=== PATIENT | female | born 1995 | race Caucasian/White ===

== ENCOUNTER 2024-10-09 14:11 | Emergency (ER) | payer MEDICAID ==
[~2024-10-09] VITALS: Ht 167.6 cm; Wt 98.6 kg
[2024-10-09 14:19] VITALS: BP 174/96; PULSE 125; RESP 18; TEMP 97.6; O2SAT 98
== END 2024-10-09 15:29 | disposition left against medical advice (07) ==
LOC: ER 14:11
DX: Z00.8 Encounter for other general examination (principal); Z53.21 Procedure and treatment not carried out due to patient leaving prior to being seen by health care provider

== ENCOUNTER 2024-10-21 12:07 | Emergency (ER) | payer MEDICAID ==
[~2024-10-21] VITALS: Ht 167.6 cm; Wt 114.9 kg
[2024-10-21 12:12] VITALS: BP 136/71; PULSE 100; RESP 16; O2SAT 98
--- NOTE | 2024-10-21 13:30 | Physician Documentation ---
History of Present Illness ~ Chief Complaint: See Chief Complaint Stated Complaint: BRISENO ON FEET Time Seen by MD: 13:07 HPI 28-year-old female presents to the ED with a complaint of bilateral lower extremity burning after she done cutting trees with shoes on. States she de veloped burning for approximately 1 hour andequesting treatment. States he may have gotten her socks from her recovery treatment center however her shoes are not new so Day of Onset: October 21, 2024 Medication Reconciliation Allergies: Coded Allergies: No Known Allergies (Unverified , 10/21/24) Review of Systems All Other Systems at this time: Reviewed and Negative ROS As stated above in the HPI, otherwise all systems are reviewed and negative. Physical Exam Vital Signs: Heart Rate: 100, Respiratory Rate: 16, BP: 136/71, Pulse Oximetry: 98, Weight: 114.900 Oxygen Flow Rate: 0 Physical Exam General: Alert, no apparent distress. Respiratory: Lungs clear, no respiratory distress. Extremities: Normal range of motion, no deformity. mild foot swelling Neurologic: Oriented x4. Psychiatric: Normal mood and affect. Skin: Normal color, warm and dry. No edema, no ecchymosis. Progress Results/Orders Results/Orders Completed Orders - VINCENT BILLINGSLEY NP Silver Sulfadiazine Cream (Silvadene Cre (10/21/24 13:30) Diphenhydramine Capsule (Benadryl Capsul (10/21/24 13:35) Medications Received in ER Medications (Trade) Dose Ordered Sig/Pema Route PRN Reason Start Time Stop Time Status Last Admin Dose Admin (Silvadene cream) 1 applic ONCE ONCE TP 10/21/24 13:30 10/21/24 13:31 DC 10/21/24 13:36 1 APPLIC (Benadryl capsule) 50 mg ONCE ONCE PO 10/21/24 13:35 10/21/24 13:36 DC 10/21/24 13:36 50 MG Vital Signs 10/21/24 12:12 Pulse 100 Resp 16 B/P (MAP) 136/71 Pulse Ox 98 O2 Flow Rate 0 Medical Decision Making Findings Currently suspecting allergic to reaction to whatever detergent or bleed was used on the socks [facility] for the burning sensation and gave her Benadryl for a a H1 blocking effect. advising advice to not use the [facility] socks any longer Differential Dx:Considerations: Include: Abscess, Atopic dermitis, Cellulitis, Contact dermatitis, Drug reaction, Erysipelas, Erythema multiforme, Erythema nodosum, Henoch-Schonlein purpura, Herpes zoster, Herpes simplex, Impetigo, Menigococcemia, Molluscum contagiosum, Pityriasis rosea, Pediculosis, RMSF, Roseola infantum, Scabies, Scarlet fever, Tinea, Varicella, Viral exanthem, Urticaria, Other Departure Disposition: 01 HOME / SELF CARE / HOMELESS Impression: Primary Impression: Allergic reaction Condition: Stable Discharge Instructions: Allergy Skin Testing Referrals: NO PRIMARY CARE PROVIDER (PCP) Education Educated: Patient Educated regarding: diagnosis Signature Scribe Signature: g Attestation: The note accurately reflects work and decisions made by me.Vincent Scales NP 10/21/24 13:50 VINCENT BILLINGSLEY NP October 21, 2024 13:30
[2024-10-21] MEDS: silver sulfadiazine cream 50gm TP ONE (13:36)
[2024-10-21] MEDS: diphenhydrAMINE 25mg capsule PO ONE (13:36)
== END 2024-10-21 14:02 | disposition home or self-care (01) ==
LOC: ER 12:08
DX: T78.40XA Allergy, unspecified, initial encounter (principal); T25.022A Burn of unspecified degree of left foot, initial encounter; T25.021A Burn of unspecified degree of right foot, initial encounter; X58.XXXA Exposure to other specified factors, initial encounter; Y93.89 Activity, other specified; Y92.89 Other specified places as the place of occurrence of the external cause; Y99.8 Other external cause status
CPT/HCPCS: 99283; Q0163